=== PATIENT | female | born 1965 | race African-American/Black ===

== ENCOUNTER 2020-03-17 17:18 | Emergency (ER) | payer OTHER ==
[~2020-03-17] VITALS: Ht 152.4 cm; Wt 47.6 kg
[2020-03-17 17:34] VITALS: BP 118/67
--- NOTE | 2020-03-17 18:13 | Diagnostic Imaging Report ---
EXAM: CT Head Without Intravenous Contrast CLINICAL HISTORY: Dizziness. TECHNIQUE: Axial computed tomography images of the head/brain without intravenous contrast. CTDI is 53.4 mGy and DLP is 1001.7 mGy-cm. One or more of the following dose reduction techniques were used: automated exposure control, adjustment of the mA and/or kV according to patient size, use of iterative reconstruction technique. COMPARISON: No previous study. FINDINGS: Brain: No abnormal extra-axial collection is noted. No hemorrhage. Midline shift: No midline shift or mass-effect per Ventricles: The ventricular system is age appropriate. Bones/joints: Calvarium is within normal limits. No acute fracture. Soft tissues: Unremarkable. Sinuses: Visualized sinuses are unremarkable. Mastoid air cells: Mastoid air cells are well pneumatized. Other findings: Only axial and coronal images were provided. IMPRESSION: 1. Age appropriate changes. 2. No acute intracranial pathology. 3. If there is concern for etiology such as early acute lacunar infarcts, magnetic resonance imaging of the brain with diffusion-weighted sequences should be performed.
[2020-03-17 18:49] LABS: BASOPHILS % (AUTO) 1.6 % (0.0-2.0); EOSINOPHILS % (AUTO) 3.2 % (0.0-3.0); HEMATOCRIT 43.8 % (37.0-47.0); HEMOGLOBIN 14.6 G/DL (12.0-16.0); LYMPHOCYTES % (AUTO) 41.3 % (20.0-45.0); MEAN CORPUSCULAR VOLUME 92 FL (80-99); MONOCYTES % (AUTO) 6.9 % (1.0-10.0); NEUTROPHILS % (AUTO) 47.1 % (45.0-75.0); PLATELET COUNT 245 K/UL (150-450); RED BLOOD COUNT 4.76 M/UL (4.20-5.40); RED CELL DISTRIBUTION WIDTH 12.6 % (11.6-14.8); WHITE BLOOD COUNT 5.4 K/UL (4.8-10.8)
--- NOTE | 2020-03-17 18:57 | Emergency Room Report ---
History of Present Illness General Chief Complaint: Chest Pain Source: Patient Present Illness HPI 54-year-old female with history of migraine headache recently diagnosed and started on Nurtec and amitriptyline x2 days by neurologist here complaining of sudden onset of chest pain with shortness of breath now radiating to left arm x4 hours. Patient took nitroglycerin sublingual prior to arrival. Reports also 3 days ago she had a similar episode and called the paramedics however paramedics came and evaluated her and told her that she has anxiety. Patient rates the pain 10 out of 10 and stabbing. Reports that it occurred at rest. Denies any nausea or vomiting. Also complains of 10 out of 10 headache with dizziness. Reports that she has been more dizzy today. Denies drug use, tobacco smoke, alcohol intake. Also takes omeprazole for gastritis. Denies taking any blood thinners at this time. Allergies: Coded Allergies: BACITRACIN (Verified Allergy, Unknown, 03/17/20) LIDOCAINE (Verified Allergy, Unknown, 03/17/20) NEOMYCIN (Verified Allergy, Unknown, 03/17/20) POLYMYXIN B (Verified Allergy, Unknown, 03/17/20) PRAMOXINE (Verified Allergy, Unknown, 03/17/20) COVID-19 Screening Contact w/high risk pt: No Experienced COVID-19 symptoms?: Yes COVID-19 Testing performed VIDEO GAME PRODUCER: No Patient History Past Medical History: see triage record Past Surgical History: none Pertinent Family History: none Last Menstrual Period: hyst Now: No Immunizations: UTD Reviewed Nursing Documentation: PMH: Agreed; PSxH: Agreed Nursing Documentation-PMH Past Medical History: No History, Except For History Of Psychiatric Problem: Yes - anxiety Hx Neurological Problems: Yes - migraines Review of Systems All Other Systems: negative except mentioned in HPI Physical Exam Vital Signs Date Time Temp Pulse Resp B/P (MAP) Pulse Ox O2 Delivery O2 Flow Rate FiO2 03/17/20 17:24 99.0 86 20 160/80 (106) 96 03/17/20 17:34 Room Air Sp02 EP Interpretation: reviewed, normal General Appearance: alert, non-toxic, mild distress Head: normocephalic, atraumatic Eyes: bilateral eye normal inspection, bilateral eye PERRL ENT: hearing grossly normal, normal pharynx, no angioedema, normal voice Neck: full range of motion, supple, supple/symm/no masses Respiratory: chest non-tender, lungs clear, normal breath sounds, no rhonchi, no retraction, speaking full sentences Cardiovascular #1: regular rate, rhythm, no edema Cardiovascular #2: 2+ carotid (R), 2+ carotid (L), 2+ radial (R), 2+ radial (L), 2+ dorsalis pedis (R), 2+ dorsalis pedis (L) Gastrointestinal: non tender, soft Genitourinary: no CVA tenderness Musculoskeletal: back normal, digits/nails normal, no calf tenderness, pelvis stable, non-tender Neurologic: alert, motor strength/tone normal, oriented x3, sensory intact, responsive, speech normal Psychiatric: judgement/insight normal, memory normal, mood/affect normal, no suicidal/homicidal ideation Skin: no rash Lymphatic: no adenopathy Medical Decision Making PA Attestation All diagnoses and treatment plans were reviewed and discussed with my supervising physician Dr. Russell Diagnostic Impression: Primary Impression: Medication adverse effect Additional Impression: Chest pain ER Course 54-year-old female with history of migraine headache recently diagnosed and started on Nurtec and amitriptyline x2 days by neurologist here complaining of sudden onset of chest pain with shortness of breath now radiating to left arm x4 hours. Patient took nitroglycerin sublingual prior to arrival. Reports also 3 days ago she had a similar episode and called the paramedics however paramedics came and evaluated her and told her that she has anxiety. Patient rates the pain 10 out of 10 and stabbing. Reports that it occurred at rest. Denies any nausea or vomiting. Also complains of 10 out of 10 headache with dizziness. Reports that she has been more dizzy today. Denies drug use, tobacco smoke, alcohol intake. Also takes omeprazole for gastritis. Denies taking any blood thinners at this time. Ddx considered but are not limited to: [place], Angina, COPD, GERD, Vital signs: are WNL, pt. is afebrile H&PE are most consistent with adverse reaction to medication, chest pain ORDERS: Chest pain order set ED INTERVENTIONS: NS bolus DISCHARGE: At this time pt. is stable for d/c to home. Will provide printed pat ient care instructions, and any necessary prescriptions. Care plan and follow up instructions have been discussed with the patient prior to discharge. Follow-up with your primary care provider for referral to coil taper if needed, also asked your neurologist to change the medication that you are currently taking for migraine headache. If worsening symptoms return to the emergency room EKG Diagnostic Results Rate: normal Rhythm: NSR ST Segments: no acute changes Other Impression No acute ST changes ASA given to the pt in ED: No Chest X-Ray Diagnostic Results Chest X-Ray Diagnostic Results : Chest X-Ray Ordered: Yes # of Views/Limited/Complete: 1 View Indication: Chest Pain EP Interpretation: Yes PA Xray: Interpretation reviewed, by supervising MD, and agrees with findings. Interpretation: no consolidation, no effusion, no pneumothorax, no acute cardiopulmonary disease Impression: No acute disease Electronically Signed by: Queenie Smith PA-C CT/MRI/US Diagnostic Results CT/MRI/US Diagnostic Results : Imaging Test Ordered: Head CT no contrast Impression COMPARISON: No previous study. FINDINGS: Brain: No abnormal extra-axial collection is noted. No hemorrhage. Midline shift: No midline shift or mass-effect per Ventricles: The ventricular system is age appropriate. Bones/joints: Calvarium is within normal limits. No acute fracture. Soft tissues: Unremarkable. Sinuses: Visualized sinuses are unremarkable. Mastoid air cells: Mastoid air cells are well pneumatized. Other findings: Only axial and coronal images were provided. IMPRESSION: 1. Age appropriate changes. 2. No acute intracranial pathology. 3. If there is concern for etiology such as early acute lacunar infarcts, magnetic resonance imaging of the brain with diffusion-weighted sequences should be performed. Last Vital Signs Date Time Temp Pulse Resp B/P (MAP) Pulse Ox O2 Delivery O2 Flow Rate FiO2 03/17/20 17:34 86 20 03/17/20 17:34 99.0 118/67 98 Room Air Disposition: HOME, SELF-CARE Condition: Stable Patient Instructions: Nonspecific Chest Pain Additional Instructions: Follow-up with your primary care provider for referral to coil taper if needed, also asked your neurologist to change the medication that you are currently taking for migraine headache. If worsening symptoms return to the emergency room Queenie Gutierrez Mar 17, 2020 18:57
[2020-03-17 18:59] LABS: INR 0.9 (0.9-1.1); PARTIAL THROMBOPLASTIN TIME 27 SEC (23-33)
[2020-03-17 19:00] VITALS: BP 106/59
[2020-03-17 19:05] LABS: ANION GAP 9 mmol/L (5-15); BLOOD UREA NITROGEN 9 mg/dL (7-18); CALCIUM 9.3 MG/DL (8.5-10.1); CARBON DIOXIDE 26 MMOL/L (21-32); CHLORIDE 100 MMOL/L (98-107); CREATININE 0.8 MG/DL (0.55-1.30); POTASSIUM 3.1 MMOL/L (3.5-5.1); SODIUM 135 MMOL/L (136-145)
[2020-03-17 19:11] LABS: APPEARANCE,URINE CLEAR; BILIRUBIN, URINE NEGATIVE (NEGATIVE); COLOR,URINE PALE YELLOW; GLUCOSE, URINE (UA) NEGATIVE (NEGATIVE); KETONES,URINE NEGATIVE (NEGATIVE); LEUKOCYTE ESTERASE ,URINE NEGATIVE (NEGATIVE); NITRITE,URINE NEGATIVE (NEGATIVE); PH,URINE 7 (4.5-8.0); PROTEIN,URINE NEGATIVE (NEGATIVE); UROBILINOGEN,URINE NORMAL MG/DL (0.0-1.0)
[2020-03-17 19:17] LABS: ALANINE AMINOTRANSFERASE 20 U/L (12-78); ALBUMIN 4.3 G/DL (3.4-5.0); ALBUMIN/GLOBULIN RATIO 1.1 (1.0-2.7); ALKALINE PHOSPHATASE 56 U/L (46-116); ASPARTATE AMINO TRANSFERASE 20 U/L (15-37); BILIRUBIN,TOTAL 0.6 MG/DL (0.2-1.0)
[2020-03-17 19:55] VITALS: BP 112/60
--- NOTE | 2020-03-17 21:08 | Diagnostic Imaging Report ---
Indication: Chest pain Technique: One view of the chest Comparison: none Findings: Lungs and pleural spaces are clear. Heart size is normal. Impression: No acute process
--- NOTE | 2020-03-21 15:03 | Cardiology Report ---
APPROVED REPORT EKG Measurement Heart [id number] <Conclusion> Normal sinus rhythm Nonspecific ST abnormality Abnormal ECG
== END 2020-03-17 19:55 | disposition home or self-care (01) ==
LOC: EMR 18:50
DX: R07.9 Chest pain, unspecified (principal); T50.905A Adverse effect of unspecified drugs, medicaments and biological substances, initial encounter; Y92.9 Unspecified place or not applicable; F41.9 Anxiety disorder, unspecified; Z88.8 Allergy status to other drugs, medicaments and biological substances; K29.70 Gastritis, unspecified, without bleeding; Z79.899 Other long term (current) drug therapy
CPT/HCPCS: 36415; 70450; 71045; 80053; 80307; 81003; 83880; 84484; 85025; 85379; 85610; 85730; 93005; 96360; 99284; J7030; U0002; J8499